=== PATIENT | female | born 1945 | race African-American/Black ===

== ENCOUNTER 2017-07-11 10:58 | Outpatient (CLI) | payer MEDICARE ==
--- NOTE | 2017-07-11 12:12 | Cat Scan Report ---
CT CHEST WITH CONTRAST: 07/11/17 11:00:00 CLINICAL: Shortness of breath. On immunotherapy for colon cancer. No comparisons. TECHNIQUE: PE protocol with volumetric acquisition and 1.25 mm scan reconstructions after the uneventful intravenous injection of 100 cc Omnipaque 350. Consent was obtained prior to the administration of contrast. FINDINGS: Good opacification of the pulmonary arteries and no pulmonary artery thrombus identified. However, extensive bilateral multilobar relatively central and relatively symmetric patchy and confluent airspace disease with shaggy margins. The peripheral portions of the lungs are spared. An irregular right lower lobe lung mass is contiguous to the heart and measures 5.5 x 3.5 cm. A right lung mass at the hilum measures 3.3 x 2.6 cm. In irregular left lower lobe lung mass with air bronchograms measures 4.0 x 3.3 x 2.6 cm. No pleural effusion. A few small mediastinal lymph nodes in the knee no mediastinal or hilar lymphadenopathy. The heart is large. Calcification and ectasia of the aorta but otherwise normal aorta. Normal thyroid, trachea and esophagus. A right [id number] tip is in the SVC. The upper abdomen is remarkable for a small irregular liver. Bone windows demonstrate severe osteopenia. No suspicious bone lesions. IMPRESSION: 1. No pulmonary embolus. 2. Bilateral multilobar lung masses consistent with metastases. 3. Extensive bilateral multilobar airspace disease with a pattern suggestive of either pulmonary hemorrhage, atypical pneumonia or drug reaction. I discussed the findings with Dr. Burris on 07/11/17 at 11:55.
== END 2017-07-11 10:59 | disposition home or self-care (01) ==
LOC: SPVIMAG 10:58
PROVIDERS: ATTEND Internal Medicine Hematology & Oncology
DX: C18.7 Malignant neoplasm of sigmoid colon (principal); R91.8 Other nonspecific abnormal finding of lung field; I70.0 Atherosclerosis of aorta; I77.819 Aortic ectasia, unspecified site; M85.80 Other specified disorders of bone density and structure, unspecified site; R06.02 Shortness of breath
CPT/HCPCS: 71275; Q9967